=== PATIENT | male | born 1945 | race Caucasian/White ===

== ENCOUNTER 2017-02-15 13:34 | Emergency (ER) | payer OTHER ==
[2017-02-15 12:37] LABS: BE (BASE EXCESS) 2.2 MEQ/L (0 +/- 2.5); CARBOXYHEMOGLOBIN 1.2 % (0-3); HCO3 (ACTUAL BICARBONATE) 27.3 MEQ/L (23-27); INSTRUMENT SERIAL # 8087; METHEMOGLOBIN 0.2 % (0-3); O2 CONTENT 19.5 VOL% (18-24); PCO2 (CO2 TENSION) 44 MMHG (35-45); PO2 (O2 TENSION) 162 MMHG (79-93); SAMPLE Arterial; pH 7.41 (7.37-7.43)
[2017-02-15 12:38] LABS: ALLENS TEST Pos; DEVICE NC; OPERATOR ID 35188
[2017-02-15 13:02] LABS: BASOPHILS 0.1 %; BASOPHILS ABSOLUTE 0.01 10/3/uL (0.0-0.16); EOSINOPHILS 0 %; HEMATOCRIT 40.9 % (40.0-51.0); HEMOGLOBIN 14.3 g/dL (13.6-17.8); IMMATURE GRANULOCYTES 1.4 %; IMMATURE GRANULOCYTES ABSOLUTE 0.11 10/3/uL (0.0-0.11); LYMPHOCYTES 3.8 %; LYMPHOCYTES ABSOLUTE 0.29 10/3/uL (0.67-4.30); MANUAL DIFF NO %; MEAN CORPUSCULAR HEMOGLOB 29.9 pg (26.0-34.0); MEAN CORPUSCULAR VOLUME 85.4 fL (80-100); MONOCYTES 0.1 %; MONOCYTES ABSOLUTE 0.01 10/3/uL (0.21-1.20); NEUTROPHILS 94.6 %; NEUTROPHILS ABSOLUTE 7.31 10/3/uL (2.02-8.40); PLATELET COUNT 171 10/3/uL (150-400); RBC DISTRIBUTION WIDTH 15.1 % (12.0-16.0); RED CELL COUNT 4.79 10/6/uL (4.7-6.1); WHITE BLOOD CELLS 7.7 10/3/uL (4.5-10.5)
[2017-02-15 13:16] LABS: A/G RATIO 1.2 (0.7-1.9); CALCIUM, SERUM 8.8 MG/DL (8.5-10.4); CHLORIDE, SERUM 98 MMOL/L (96-112); CREATININE 0.71 MG/DL (0.70-1.30); GFR AFRICAN AMERICAN 111 ML/MIN (>=60); GFR NON AFRICAN AMERICAN 96 ML/MIN (>=60); GLOBULIN 3.3 G/DL (2.5-4.1); POTASSIUM, SERUM 3.4 MMOL/L (3.5-5.3); SGOT(AST) 12 U/L (5-40); SGPT(ALT) 29 U/L (5-65); SODIUM, SERUM 139 MMOL/L (135-148); TOTAL BILIRUBIN 0.7 MG/DL (0-1.2); TOTAL PROTEIN 7.3 G/DL (6.0-8.5)
[2017-02-15 13:19] LABS: ALKALINE PHOSPHATASE 83 U/L (45-117); BUN (BLOOD UREA NITROGEN) 18 MG/DL (6-23); CO2 (CARBON DIOXIDE) 32 MMOL/L (24-34); GLUCOSE, SERUM 168 MG/DL (60-99)
[~2017-02-15 13:34] MED LIST: ADVAIR INH; ADVAIR PO; ALLOPURINOL; ATROVENTUD INH; BLOOD PRESSURE MED PO; DUONEB INH; EXCEDRIN EXTRA1 EACH PO; GLUCPH PO; HUMI PO; LEVAQUIN750 MG PO; MEDROLPAK4; NICODERM C21 MG/241 TOP; NORV25 PO; P20; PREDNISONE PO; PRILO PO; PRIN20 PO; PROVENTSOL INH; SPIRIVA INH; SYMBICORT 160/41 INH INH; VENTOLIN HFA PO; ZITH250 PO
[2017-03-27] MEDS ORDERED: *UNABLE1 (05:58)
== END 2017-02-15 21:17 | disposition home or self-care (01) ==
LOC: ER 13:34
PROVIDERS: Emergency Medicine
DX: J44.1 Chronic obstructive pulmonary disease with (acute) exacerbation (principal); I10 Essential (primary) hypertension; F17.200 Nicotine dependence, unspecified, uncomplicated; Z79.899 Other long term (current) drug therapy; Z79.52 Long term (current) use of systemic steroids
CPT/HCPCS: 36600; 71010; 80053; 82805; 85025; 87040; 87070; 87205; 93005; 94640; 99285

== ENCOUNTER 2017-02-19 03:57 | Inpatient (IN) | payer OTHER ==
--- NOTE | ~2017-02-19 | DS ---
Discharge Summary [facility] [address] [place]. [address] NAME: BRENDAN CHINO JR : 49 STATUS : DIS IN PAT#: [id number] AGE: 71 ADM/REG DATE : 02/19/17 MR#: [id number] REPORT SERV DATE: 02/23/17 DICTATED BY: JUDITH HERNANDEZ DATE: 02/22/17 REPORT STATUS : Draft TRANSCRIBED BY: MODL DATE: 02/22/17 ADMISSION DATE: 02/19/2017 DISCHARGE DATE: 02/22/2017 PRINCIPAL DIAGNOSIS: Chronic obstructive pulmonary disease exacerbation with acute on chronic hypoxemic and hypercapnic respiratory failure. HISTORY OF PRESENT ILLNESS: Please see dictation on 02/19/2017. HOSPITAL COURSE: Admitted with exacerbation of COPD. He received aerosols, steroids, antibiotics, and was able to be weaned off these as his breathing had returned to baseline. He was not found to be wheezing by 02/22/2017 and was discharged. Following up with Dr. Bryan Guerra in 1 to 2 weeks. He was given prescriptions for Advair and Spiriva in addition to his albuterol and Atrovent which he would take p.r.n., a tapering course of steroids, no further antibiotics. Other medications were unchanged. Greater 30 minutes were spent in the care of this patient on discharge planning on discharge day. MAYRA/AINSLEY Judith Hernandez M.D. / [id number] CC: Bryan Guerra M.D.
--- NOTE | ~2017-02-19 | HP ---
History And Physical [place] [place]. [address] NAME: BRENDAN CHINO JR : 49 STATUS : ADM Barb PAT#: [id number] AGE: 71 ADM/REG DATE : 02/19/17 MR#: [id number] REPORT SERV DATE: 02/19/17 DICTATED BY: ANSON BECERRA DATE: 02/19/17 REPORT STATUS : Draft TRANSCRIBED BY: MODL DATE: 02/19/17 DATE OF ADMISSION: 02/19/2017 CHIEF COMPLAINT: Shortness of breath. HISTORY OF PRESENT ILLNESS: This is a 71-year-old male with a history of COPD, chronic hypoxic respiratory failure, on supplemental oxygen therapy at home, who presents to the emergency room at [facility] with EMS for the above-mentioned complaint. History is obtained from the patient and reviewing data available on the [employer] system as well. According to Mr. Chino, he was in his usual state of health and last night, he had supper and tried to retire in bed when he suddenly found himself unable to breathe. He apparently got up, tried his home nebulizer treatments and other inhalers, but nothing worked. Neighbor, who is close to his house, also helped him out and advised him that he might call 911 and get to the hospital. In the emergency room, despite several respiratory treatments and nebulizer treatments, Mr. Chino continued to have increased work of breathing, and Hospitalist Service is asked to admit him for further evaluation and treatment. At the time of my evaluation, he denied any chest pain or pressure, denied any palpitations or orthopnea. He had a cough, which was essentially nonproductive, not associated with any fevers, chills, or weight loss. He has not had any recent falls or loss of consciousness, although he did have some dizziness. No history of fevers, chills, nausea, vomiting, diarrhea, hematemesis, hematochezia. No dysuria or hematuria. No other history of recent travel or exposures other than those mentioned above. PAST MEDICAL HISTORY: Significant for history of COPD, chronic hypoxic respiratory failure on 2 to 3 L of oxygen via nasal cannula continuously. He also has essential hypertension, gastroesophageal reflux disease. He has had an open reduction and internal fixation of his left femur. SOCIAL HISTORY: He has a very significant smoking history with more than 100-pack years and he continues to do so. Denies alcohol use or recreational drug use. He used to work in linen delivery and pickup. FAMILY HISTORY: Noncontributory. MEDICATIONS: At home were reviewed by me in the chart today and reordered by me. REVIEW OF SYSTEMS: As in history of present illness. All other systems were reviewed in detail and are quite unremarkable. PHYSICAL EXAMINATION: History And Physical [address] [place]. [address] NAME: BRENDAN CHINO JR : 49 STATUS : ADM Barb PAT#: [id number] AGE: 71 ADM/REG DATE : 02/19/17 MR#: [id number] REPORT SERV DATE: 02/19/17 DICTATED BY: ANSON BECERRA DATE: 02/19/17 REPORT STATUS : Draft TRANSCRIBED BY: AINSLEY DATE: 02/19/17 GENERAL: This is a pleasant 71-year-old, not in any acute distress. HEENT: His head is atraumatic, normocephalic. He is alert, awake, oriented to time, place, and person. Pupils are equal, reacting to light and accommodating. External ocular muscles are intact. Membranes are moist and pink. Sclerae are nonicteric. NECK: Supple with no jugular venous distention, lymphadenopathy, or thyromegaly. LUNGS: Auscultation of his lungs revealed moderate air entry bilaterally, but with expiratory wheezes diffusely in both lungs. Trachea appeared to be in midline. Cardiac: Auscultation of his heart revealed normal rate and rhythm with no murmurs, rubs, or gallops. ABDOMEN: Soft, nontender. Bowel sounds are present. There is no organomegaly. EXTREMITIES: Showed no cyanosis, clubbing, or edema. NEUROLOGIC: Grossly intact. No focal sensory or motor deficits. He was able to move all four extremities. Higher functions appeared intact. VITAL SIGNS: Today showed a temperature of 97.9, pulse 89, respirations 16 a minute, blood pressure was 141/87, oxygen saturations were 98%, breathing 3 L of oxygen via nasal cannula. LABORATORY DATA: Reviewed on the [employer] system showed a pH of 7.39 on arterial blood gas, pCO2 was 53, PO2 was 81, and bicarb was 31.2. This was on 2 L via nasal cannula. Sodium was 138, potassium 3.3, chloride 99, and CO2 was 32. BUN was 16 with a creatinine of 0.65 today. Blood glucose was 106. His troponin today was 0.03. BNP was 69. CBC showed a white blood cell count of 15,500, hemoglobin was 13.3 with a hematocrit of 39.1, platelet count was 178,000. His prothrombin time was 13.5 with an INR of 1.0. Urinalysis was not performed today. Films of the chest x-ray were reviewed by me on the PACS today and interpreted by me. Per my interpretation, there is normal bony architecture with no acute lobar consolidations or pleural effusions seen. A 12-lead EKG done in the emergency room was reviewed and interpreted by me. There is normal sinus rhythm with a rate of 92 with right bundle branch block. IMPRESSION: 1. Shortness of breath. 2. Chronic obstructive pulmonary disease with acute exacerbation. 3. Respiratory acidosis. 4. Leukocytosis. 5. Essential hypertension. 6. Gastroesophageal reflux disease. 7. Chronic hypoxic respiratory failure, on 2 L of oxygen continuously. PLAN: We will admit Mr. Chino to the Hospitalist Service with telemetry for a 24-hour observation. We will maximize his bronchodilator treatments, continue supplemental oxygen therapy, start him on inhaled and intravenous corticosteroids. We will follow his ABGs. After cultures are drawn, we will start him on empiric IV antibiotics. We will start him on azithromycin and ceftriaxone, follow Gram stain cultures and discontinue if appropriate. We will continue all other medications and treatments that he is on. We will also get a chemistry CBC in the morning along with electrolytes and replete as needed. He will be placed on low-molecular weight heparin for DVT prophylaxis while here as well. I have discussed the above plans with Mr. Chino, his questions were answered and he is quite agreeable to the above recommendations. He also said he is feeling much better than when he History And Physical [address] [place]. [address] NAME: BRENDAN CHINO : 49 STATUS : ADM Barb PAT#: [id number] AGE: 71 ADM/REG DATE : 02/19/17 MR#: [id number] REPORT SERV DATE: 02/19/17 DICTATED BY: ANSON BECERRA DATE: 02/19/17 REPORT STATUS : Draft TRANSCRIBED BY: AINSLEY DATE: 02/19/17 first came in. Hospitalist Service will be following him during his stay here. /AINSLEY Anson Becerra M.D. / [id number] CC: Massimo Pagan MD
[2017-02-19 03:23] LABS: BASOPHILS 0.1 %; BASOPHILS ABSOLUTE 0.01 10/3/uL (0.0-0.16); EOSINOPHILS 0.9 %; EOSINOPHILS ABSOLUTE 0.14 10/3/uL (0.0-0.53); HEMATOCRIT 39.1 % (40.0-51.0); HEMOGLOBIN 13.3 g/dL (13.6-17.8); IMMATURE GRANULOCYTES 1.8 %; LYMPHOCYTES 8.2 %; LYMPHOCYTES ABSOLUTE 1.27 10/3/uL (0.67-4.30); MEAN CORPUSCULAR HEMOGLOB 29.6 pg (26.0-34.0); MEAN CORPUSCULAR VOLUME 87.1 fL (80-100); MEAN PLATELET VOLUME 8.7 fL (9.2-13.0); MONOCYTES 5.8 %; NEUTROPHILS 83.2 %; NEUTROPHILS ABSOLUTE 12.93 10/3/uL (2.02-8.40); PLATELET COUNT 178 10/3/uL (150-400); RBC DISTRIBUTION WIDTH 15.2 % (12.0-16.0); RED CELL COUNT 4.49 10/6/uL (4.7-6.1)
[2017-02-19 03:25] LABS: ER CBC TAT 0 Hrs 07 Mins; IMMATURE GRANULOCYTES ABSOLUTE 0.28 10/3/uL (0.0-0.11); MANUAL DIFF NO %; WHITE BLOOD CELLS 15.5 10/3/uL (4.5-10.5)
[2017-02-19 03:29] LABS: PROTIME (NOT ORD) 13.5 SEC (12.0-14.5)
[2017-02-19 03:34] LABS: PARTIAL THROMBO TIME 23.3 SEC (22.5-37.2)
[2017-02-19 03:43] LABS: BUN (BLOOD UREA NITROGEN) 16 MG/DL (6-23); CALCIUM, SERUM 8.5 MG/DL (8.5-10.4); CHEST PAIN PROFILE TAT 0 Hrs 25 Mins; CHLORIDE, SERUM 99 MMOL/L (96-112); CO2 (CARBON DIOXIDE) 32 MMOL/L (24-34); CREATININE 0.65 MG/DL (0.70-1.30); GFR AFRICAN AMERICAN 115 ML/MIN (>=60); GFR NON AFRICAN AMERICAN 99 ML/MIN (>=60); POTASSIUM, SERUM 3.3 MMOL/L (3.5-5.3); SODIUM, SERUM 138 MMOL/L (135-148); TROPONIN I 0.03 NG/ML (<0.05)
[2017-02-19 03:51] LABS: GLUCOSE, SERUM 106 MG/DL (60-99)
[2017-02-19 04:10] LABS: BAND NEUTROPHILS 2 %; ER DIFF TAT 0 Hrs 52 Mins; LYMPHOCYTES 10 %; LYMPHOCYTES ABSOLUTE (CALC) 1.55 10/3/uL (0.67-4.30); MONOCYTES 8 %; MONOCYTES ABSOLUTE (CALC) 1.24 10/3/uL (0.21-1.20); NEUTROPHILS ABSOLUTE (CALC) 12.71 10/3/uL (2.02-8.40); PLATELET ESTIMATE ADQ (ADEQUATE); RBC MORPHOLOGY NORM (NORMAL); SEGMENTED NEUTROPHIL (0) 80 %; TOTAL NUCLEATED CELLS 100
[2017-02-19 04:31] LABS: ALLENS TEST Pos; DEVICE NC; HCO3 (ACTUAL BICARBONATE) 31.2 MEQ/L (23-27); HEMOBLOGIN CONTENT 13.9 G/DL (14-18); INSTRUMENT SERIAL # 8087; METHEMOGLOBIN 0.2 % (0-3); O2 CONTENT 18.4 VOL% (18-24); OPERATOR ID 334499; PCO2 (CO2 TENSION) 53 MMHG (35-45); PO2 (O2 TENSION) 81 MMHG (79-93); SAMPLE Arterial; pH 7.39 (7.37-7.43)
[2017-02-19 07:25] LABS: BASOPHILS 0.1 %; BASOPHILS ABSOLUTE 0.01 10/3/uL (0.0-0.16); EOSINOPHILS 0.1 %; EOSINOPHILS ABSOLUTE 0.01 10/3/uL (0.0-0.53); HEMATOCRIT 37.8 % (40.0-51.0); IMMATURE GRANULOCYTES 0.9 %; IMMATURE GRANULOCYTES ABSOLUTE 0.15 10/3/uL (0.0-0.11); LYMPHOCYTES 1.9 %; LYMPHOCYTES ABSOLUTE 0.31 10/3/uL (0.67-4.30); MEAN CORPUS HGB CONC 34.4 g/dL (32.0-36.0); MEAN CORPUSCULAR HEMOGLOB 29.6 pg (26.0-34.0); MEAN CORPUSCULAR VOLUME 86.1 fL (80-100); MEAN PLATELET VOLUME 8.9 fL (9.2-13.0); MONOCYTES 2.2 %; MONOCYTES ABSOLUTE 0.36 10/3/uL (0.21-1.20); NEUTROPHILS 94.8 %; NEUTROPHILS ABSOLUTE 15.87 10/3/uL (2.02-8.40); PLATELET COUNT 171 10/3/uL (150-400); RBC DISTRIBUTION WIDTH 15.3 % (12.0-16.0); RED CELL COUNT 4.39 10/6/uL (4.7-6.1); WHITE BLOOD CELLS 16.7 10/3/uL (4.5-10.5)
[2017-02-19 07:29] LABS: MANUAL DIFF NO %
[2017-02-19 07:38] LABS: BUN (BLOOD UREA NITROGEN) 15 MG/DL (6-23); CALCIUM, SERUM 8.3 MG/DL (8.5-10.4); CHLORIDE, SERUM 99 MMOL/L (96-112); CO2 (CARBON DIOXIDE) 30 MMOL/L (24-34); CREATININE 0.57 MG/DL (0.70-1.30); GFR AFRICAN AMERICAN 121 ML/MIN (>=60); GFR NON AFRICAN AMERICAN 105 ML/MIN (>=60); PHOSPHORUS, SERUM 2.9 MG/DL (2.5-4.5); POTASSIUM, SERUM 3.9 MMOL/L (3.5-5.3); SODIUM, SERUM 138 MMOL/L (135-148)
[2017-02-19 07:40] LABS: GLUCOSE, SERUM 134 MG/DL (60-99)
[2017-02-19] MEDS ORDERED: LEVAQUIN750 MG PO (15:07)
[2017-02-19] MEDS ORDERED: ALBUTEROL0.083 % INH (15:09)
[2017-02-19] MEDS ORDERED: NORV25 PO (15:10)
[2017-02-19] MEDS ORDERED: ATROVENTUD INH (15:11)
[2017-02-19] MEDS ORDERED: PRIN20 PO (15:12)
[2017-02-19] MEDS ORDERED: PRILO PO (15:13)
[2017-02-19] MEDS ORDERED: VENTOLIN HFA INH (15:16)
[2017-02-19] MEDS ORDERED: EXCEDRIN EXTRA1 EACH PO (15:19)
[2017-02-22] MEDS ORDERED: NORV25 PO (15:17)
[2017-02-22] MEDS ORDERED: ADVAIR100 INH (15:19)
[2017-02-22] MEDS ORDERED: SPIRIVA INH (15:20)
[2017-02-22] MEDS ORDERED: P10 ×3 (15:22→15:24)
[2017-03-27] MEDS ORDERED: *UNABLE1 (05:58)
== END 2017-02-22 17:50 | disposition home or self-care (01) | DRG 189 ==
LOC: ER 03:57 → 7NO 04:58
PROVIDERS: Emergency Medicine; Internal Medicine Pulmonary Disease
DX: J96.21 Acute and chronic respiratory failure with hypoxia (principal); E87.2 Acidosis; J44.1 Chronic obstructive pulmonary disease with (acute) exacerbation; J96.22 Acute and chronic respiratory failure with hypercapnia; F17.210 Nicotine dependence, cigarettes, uncomplicated; Z99.81 Dependence on supplemental oxygen; K21.9 Gastro-esophageal reflux disease without esophagitis; D72.829 Elevated white blood cell count, unspecified; I10 Essential (primary) hypertension; H26.9 Unspecified cataract
CPT/HCPCS: 36600; 71020; 80048; 82805; 83605; 83735; 83880; 84100; 84145; 84484; 85025; 85610; 85730; 87040; 87070; 87205; 87449; 93005; 94640; 96374; 99285; A9270-GY; J0456; J2930

== ENCOUNTER 2017-03-06 19:23 | Inpatient (IN) | payer OTHER ==
--- NOTE | ~2017-03-06 | DS ---
Discharge Summary [facility] [address] [place]. [address] NAME: BRENDAN CHINO JR : 49 STATUS : DIS IN PAT#: [id number] AGE: 71 ADM/REG DATE : 03/06/17 MR#: [id number] REPORT SERV DATE: 03/13/17 DICTATED BY: BRANDIE BEAUCHAMP DATE: 03/12/17 REPORT STATUS : Draft TRANSCRIBED BY: AINSLEY DATE: 03/12/17 ADMISSION DATE: 03/06/2017 DISCHARGE DATE: 03/11/2017 DISCHARGE DIAGNOSES: 1. Acute on chronic, chronic obstructive pulmonary disease exacerbation. 2. Chronic hypoxic respiratory failure. 3. Lower extremity edema. 4. Hypertension. 5. Positive D-dimer. FOLLOWUP: The patient is to have pulmonary rehab ordered by Pulmonary Service during this hospital course. The patient is to continue with home health PT and nursing. The patient is to follow up with the primary care physician in one to two weeks and follow up with Dr. Madrigal, sandblast carver, in three weeks. The patient has been educated on no tobacco usage. DISCHARGE MEDICATIONS: Levaquin 750 mg p.o. daily for one day, lisinopril 20 mg p.o. b.i.d., Prilosec 20 mg p.o. daily, hydralazine 25 mg p.o. t.i.d., albuterol neb q.4 hours, Atrovent one neb three times a day p.r.n., Norvasc 2.5 mg p.o. q.a.m., Spiriva two puffs inhaled daily, Symbicort 160/4.5 two puffs inhaled b.i.d., prednisone taper. CONSULTANTS: 1. Pulmonology with Dr. Armendariz. 2. Hospitalist, Dr. Castillo Owens, Dr. Vega, and Dr. Beauchamp. HOSPITAL COURSE: Please see H and P dictated by Dr. Owens. This is a 71-year-old male with a past medical history of COPD, on home O2 at 2-3 L, who presented with a lower extremity edema, shortness of breath, and dyspnea on exertion. During this hospital course, the patient was treated for COPD exacerbation and had a slow improvement due to presumed possible tyfxryfk-ja-xqpsiy COPD. The patient also was treated with diuretics for his lower extremity edema with improvement. He did have a positive D-dimer and therefore, had a CTA of the chest that was negative for PE centrally, but was noted with moderate emphysematous changes. Also, he had a venous doppler ultrasound that was negative of the bilateral lower extremity for DVT. The patient had a slow clinical course. Pulmonary was consulted to assist with the patient's care and they recommended pulmonary rehab. The patient states he is not sure if he will follow up in Pulmonary Rehab because he did not want to travel to an outpatient rehab facility. Therefore, it was recommended for inpatient rehab, and the patient also refused inpatient rehab. Initially, the patient was placed on BiPAP during this hospital course; however, the patient refused his BiPAP. However, he did have improvement respiratory-marie, but slowly with the treatment. At the time of discharge, the patient was back to his baseline of his physical and lung capacity. However, we still recommend a close followup with his sandblast carver and also with Pulmonary Rehab, which has been educated to the patient about importance. Also, the patient was educated on tobacco abuse cessation, and the patient was discharged to home clinically stable and approved for discharge as well by Pulmonary. Discharge Summary [address] [place]. [address] NAME: BRENDAN CHINO : 49 STATUS : DIS IN [facility]#: [id number] AGE: 71 ADM/REG DATE : 03/06/17 MR#: [id number] REPORT SERV DATE: 03/13/17 DICTATED BY: BRANDIE BEAUCHAMP DATE: 03/12/17 REPORT STATUS : Draft TRANSCRIBED BY: AINSLEY DATE: 03/12/17 BANNER/AINSLEY Brandie Beauchamp M.D. / [id number] CC: Mauricio Antunez M.D. Nathan Mull IV, M.D.
--- NOTE | ~2017-03-06 | PUL ---
[address] [place]. [address] NAME: BRENDAN CHINO JR : 49 STATUS : DIS IN PAT#: [id number] AGE: 71 ADM/REG DATE : 03/06/17 MR#: [id number] REPORT SERV DATE: 03/13/17 DICTATED BY: PATRIC UPTON DATE: 03/13/17 REPORT STATUS : Draft TRANSCRIBED BY: MODL DATE: 03/13/17 PULMONARY FUNCTION TEST PROCEDURE PERFORMED: Overnight oximetry on supplemental oxygen. The patient had only 1 minute with an oxygen saturation of less than 88% of predicted and the longest continuous desaturation was less than a minute long. IMPRESSION: Adequate correction of hypoxemia with supplemental oxygen. SUSAN/AINSLEY Patric Upton M.D. / [id number] CC: Mauricio Antunez M.D.
--- NOTE | ~2017-03-06 | CN ---
Consultation Report [facility] [address] [place]. [address] NAME: RUDDY CHINO JR : 49 STATUS : ADM IN PAT#: [id number] AGE: 71 ADM/REG DATE : 03/06/17 MR#: [id number] REPORT SERV DATE: 03/08/17 DICTATED BY: JULIAN WADDELL DATE: 03/08/17 REPORT STATUS : Draft TRANSCRIBED BY: MODL DATE: 03/08/17 CONSULT NOTE DATE OF CONSULTATION: 03/08/2017 CHIEF COMPLAINT: Shortness of breath, cough, and wheeze. HISTORY OF PRESENT ILLNESS: Mr. Ruddy Chino is a 71-year-old white male with a past medical history significant for oxygen-dependent COPD, hypertension, and recent tobacco abuse, who presents to [facility]'s Emergency Room with complaints of worsening shortness of breath, cough, and wheezing of one to two weeks' duration. It should be noted that Mr. Chino has not been hospitalized recently and has done fairly well as an outpatient given the severity of his underlying lung disease. Mr. Chino is not currently followed by a vp site. He has been seen by our service in the past, but has not established in our office secondary to financial concerns. He is oxygen dependent on two or three liters of supplemental oxygen. He is unsure of his exact pulmonary regimen. Chart review suggests he takes albuterol, Symbicort, Atrovent, as well as Spiriva. Despite not knowing all of his medications, he does claim compliance with these medications. The patient states that he quit smoking approximately two weeks ago. He has smoked upwards of a pack a day for over 50 years. He largely denies symptomatology related to obstructive sleep apnea. He describes his exercise tolerance as being fairly limited, being only able to ambulate around his home before experiencing some degree of shortness of breath. The patient states that he began to have worsening shortness of breath as well as cough and wheezing approximately one to two weeks ago. Over the last two to three days, this got progressively worse and culminated in his presentation to [facility]'s Emergency Room. Upon arrival, he was found to have a systolic blood pressure of 158, his oxygen was 99% on 4 L. Initial blood work revealed a white blood cell count of 7900. BNP was 111. He did undergo a chest x-ray, which did not reveal any acute process. The patient did receive Solu-Medrol as well as breathing treatments. Since that time, the patient has felt somewhat better. That being said, he is still having persistent dyspnea, cough, and wheeze. For the aforementioned reasons, he has been referred to the pulmonary service for further assessment. Currently, Mr. Chino is on supplemental oxygen at 3 L. He is wheezing. He is coughing periodically without purulent sputum. He does have dyspnea on exertion. He does not have frequent exacerbations of his COPD. The patient currently denies murmurs, angina, or palpitations. In regard to constitutional symptoms, the patient currently denies fever, chills, nausea, vomiting, chest pain, abdominal pain, or edema. Consultation Report [address] [place]. [address] NAME: RUDDY CHINO JR : 49 STATUS : ADM IN [facility]#: [id number] AGE: 71 ADM/REG DATE : 03/06/17 MR#: [id number] REPORT SERV DATE: 03/08/17 DICTATED BY: JULIAN WADDELL DATE: 03/08/17 REPORT STATUS : Draft TRANSCRIBED BY: AINSLEY DATE: 03/08/17 PAST MEDICAL HISTORY: 1. Oxygen-dependent COPD. 2. Hypertension. 3. Tobacco dependency. PAST SURGICAL HISTORY: Left femur ORIF. FAMILY HISTORY: The patient denies family history of lung disease. SOCIAL HISTORY: The patient currently lives alone. He is planning on moving in with his neighbors after this hospitalization for improved outpatient support. TOBACCO/ALCOHOL: As previously mentioned, the patient states he quit smoking approximately two weeks ago. Prior to this time, he smoked a pack a day for a period of 50 years. He denies any recent alcohol or illicit drug use. MEDICATIONS: 1. Albuterol. 2. Amlodipine 2.5 mg. 3. Symbicort. 4. Ipratropium. 5. Lisinopril 20 mg. 6. Omeprazole 20 mg. 7. Spiriva. ALLERGIES: THE PATIENT HAS NO KNOWN DRUG ALLERGIES. REVIEW OF SYSTEMS: A complete review of systems was performed with pertinent positives and negatives contained within the body of the HPI. PHYSICAL EXAMINATION: VITAL SIGNS: Blood pressure is 152/80, heart rate 69, T-max is 98.4, respiratory rate is 17, and SpO2 is 99% on 3 L. GENERAL: The patient is a pleasant, well-nourished/well-developed male who is not currently exhibiting any signs of acute distress. Skin: Skin with appropriate texture and turgor. No rashes, lesions, or ulcers. Nails are clear without cyanosis or clubbing. HEENT: Head: Skull is normocephalic/atraumatic. Facies symmetric. No masses or lesions. Eyes: Sclera anicteric, conjunctiva pink without exudates. Extra ocular movements intact. Pupils are equal, round, reactive to light. Ears: Auricles and tragus without pain to palpation. Hearing is grossly intact. Nose: Bilateral nasal patency. Sinuses without tenderness upon palpation. Throat: Dentition noted. Lips, oral mucosa, tongue, palate, and pharynx pink and moist without lesions. Uvula rises equally on phonation. Tongue Consultation Report [place] [id number] [facility] [place]. [address] NAME: RUDDY CHINO : 49 STATUS : ADM IN [facility]#: [id number] AGE: 71 ADM/REG DATE : 03/06/17 MR#: [id number] REPORT SERV DATE: 03/08/17 DICTATED BY: JULIAN WADDELL DATE: 03/08/17 REPORT STATUS : Draft TRANSCRIBED BY: AINSLEY DATE: 03/08/17 midline without deviation. NECK: Neck supple. Trachea midline. No cervical lymphadenopathy appreciated. THORAX/LUNGS: Thorax is symmetric with equal chest rise. Breath sounds audible through entire field. Rhonchi and wheeze appreciated. CARDIOVASCULAR: Regular rate and rhythm. No murmurs, rubs, or gallops. Anterior chest without thrills, heaves, or lifts. ABDOMEN: Soft. Non-distended, non-tender. Active bowel sounds in all four quadrants. No hepatosplenomegaly noted. PERIPHERAL VASCULAR: No edema. No varicosities, stasis changes, open sores, ulcerations, or phlebitis. 2+ pulses in radial and dorsalis pedis. MUSCULOSKELETAL: Full AROM and PROM in all joints. No evidence of erythema, deformity, or crepitus. NEUROLOGIC: CN II - XII grossly intact. Good muscle bulk and tone bilaterally. Strength 5/5 throughout. PSYCHIATRIC: Patient demonstrates good judgment and insight. Pt is A&O x 3. ACCESSORY DATA: Reveals a white blood cell count is 7900. Procalcitonin is 0.15. Arterial blood gas on 3 L reveals a pH of 7.39, PaCO2 of 56, PaO2 of 76, and a bicarb of 33.6. Echocardiogram reveals normal left ventricular size and systolic function. Estimated ejection fraction of 50% to 55%. There is a CTA of the chest pending. IMPRESSION: 1. Exacerbation of chronic obstructive pulmonary disease, acute on chronic hypoxemic, hypercapnic respiratory failure. Near baseline. 2. Hypertension. 3. Gastroesophageal reflux disease. PLAN: We will provide the patient with steroids and a full armamentarium of nebulized medications. We will offer the patient outpatient followup. He may be a candidate for pulmonary rehab. We will follow imaging studies with further recommendations. The aforementioned impression and plan has been discussed with Dr. Armendariz, who will follow further recommendations. We thank you for this consult and look forward to participating in the care of Mr. Ruddy Chino. INOCENCIO/MODL Julian Waddell PA-C / [id number] Consultation Report [address] [address] NAME: RUDDY CHINO : 49 STATUS : ADM IN [facility]#: [id number] AGE: 71 ADM/REG DATE : 03/06/17 MR#: [id number] REPORT SERV DATE: 03/08/17 DICTATED BY: JULIAN WADDELL DATE: 03/08/17 REPORT STATUS : Draft TRANSCRIBED BY: MODL DATE: 03/08/17 CC: Mauricio Antunez M.D.
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
[~2017-03-06 19:23] MED LIST changes: +ADVAIR100 INH; +ALBUTEROL0.083 % INH; +P10; +VENTOLIN HFA INH
[2017-03-06 19:54] LABS: BASOPHILS 0.1 %; BASOPHILS ABSOLUTE 0.01 10/3/uL (0.0-0.16); EOSINOPHILS 1.8 %; EOSINOPHILS ABSOLUTE 0.14 10/3/uL (0.0-0.53); ER CBC TAT 0 Hrs 08 Mins; HEMATOCRIT 35.4 % (40.0-51.0); HEMOGLOBIN 11.7 g/dL (13.6-17.8); IMMATURE GRANULOCYTES 1.5 %; IMMATURE GRANULOCYTES ABSOLUTE 0.12 10/3/uL (0.0-0.11); LYMPHOCYTES 18.7 %; LYMPHOCYTES ABSOLUTE 1.47 10/3/uL (0.67-4.30); MEAN CORPUS HGB CONC 33.1 g/dL (32.0-36.0); MEAN CORPUSCULAR HEMOGLOB 30.4 pg (26.0-34.0); MEAN CORPUSCULAR VOLUME 91.9 fL (80-100); MEAN PLATELET VOLUME 8.8 fL (9.2-13.0); MONOCYTES ABSOLUTE 0.47 10/3/uL (0.21-1.20); NEUTROPHILS 71.9 %; NEUTROPHILS ABSOLUTE 5.66 10/3/uL (2.02-8.40); PLATELET COUNT 168 10/3/uL (150-400); RBC DISTRIBUTION WIDTH 16.3 % (12.0-16.0); RED CELL COUNT 3.85 10/6/uL (4.7-6.1); WHITE BLOOD CELLS 7.9 10/3/uL (4.5-10.5)
[2017-03-06 19:55] LABS: MANUAL DIFF NO %
[2017-03-06 20:03] LABS: INTERNATIONAL NORMAL RATI 0.9 UNITS (-); PARTIAL THROMBO TIME 23.8 SEC (22.5-37.2); PROTIME (NOT ORD) 12.3 SEC (12.0-14.5)
[2017-03-06 20:10] LABS: ALLENS TEST Neg; BE (BASE EXCESS) 7.2 MEQ/L (0 +/- 2.5); CARBOXYHEMOGLOBIN 3.1 % (0-3); DEVICE NC; HCO3 (ACTUAL BICARBONATE) 33.6 MEQ/L (23-27); INSTRUMENT SERIAL # 8087; METHEMOGLOBIN 0.3 % (0-3); O2 CONTENT 15.6 VOL% (18-24); PCO2 (CO2 TENSION) 56 MMHG (35-45); PO2 (O2 TENSION) 76 MMHG (79-93); SAMPLE Arterial; pH 7.39 (7.37-7.43)
[2017-03-06 20:15] LABS: BUN (BLOOD UREA NITROGEN) 11 MG/DL (6-23); CALCIUM, SERUM 8.1 MG/DL (8.5-10.4); CHEST PAIN PROFILE TAT 0 Hrs 29 Mins; CHLORIDE, SERUM 99 MMOL/L (96-112); CO2 (CARBON DIOXIDE) 38 MMOL/L (24-34); CREATININE 0.56 MG/DL (0.70-1.30); GFR AFRICAN AMERICAN 122 ML/MIN (>=60); GFR NON AFRICAN AMERICAN 106 ML/MIN (>=60); GLUCOSE, SERUM 103 MG/DL (60-99); POTASSIUM, SERUM 3.2 MMOL/L (3.5-5.3); SODIUM, SERUM 144 MMOL/L (135-148); TROPONIN I <0.02 NG/ML (<0.05)
[2017-03-06] MEDS ORDERED: SPIRIVA RESPIMAT INH (22:00)
[2017-03-06] MEDS ORDERED: SYMBICORT 160/41 INH INH (22:01)
[2017-03-06] MEDS ORDERED: PREDNISONE (22:02)
[2017-03-06] MEDS ORDERED: EXCEDRIN EXTRA1 EACH PO (22:04)
[2017-03-06 22:52] LABS: PROCALCITONIN <0.05 ng/mL (<0.5)
[2017-03-07 06:23] LABS: FREE T4 1.06 NG/DL (0.76-1.46); TROPONIN I <0.02 NG/ML (<0.05); ULTRASENSITIVE TSH 0.178 MCIU/ML (0.358-3.740)
[2017-03-07 07:26] LABS: PROCALCITONIN 0.15 ng/mL (<0.5)
[2017-03-07 09:41] LABS: BUN (BLOOD UREA NITROGEN) 15 MG/DL (6-23); CALCIUM, SERUM 8.4 MG/DL (8.5-10.4); CHLORIDE, SERUM 96 MMOL/L (96-112); CO2 (CARBON DIOXIDE) 33 MMOL/L (24-34); CREATININE 0.63 MG/DL (0.70-1.30); GFR AFRICAN AMERICAN 117 ML/MIN (>=60); GFR NON AFRICAN AMERICAN 101 ML/MIN (>=60); GLUCOSE, SERUM 182 MG/DL (60-99); POTASSIUM, SERUM 3.7 MMOL/L (3.5-5.3); SODIUM, SERUM 141 MMOL/L (135-148)
[2017-03-08 06:27] LABS: BUN (BLOOD UREA NITROGEN) 18 MG/DL (6-23); CALCIUM, SERUM 8.6 MG/DL (8.5-10.4); CHLORIDE, SERUM 98 MMOL/L (96-112); CO2 (CARBON DIOXIDE) 35 MMOL/L (24-34); CREATININE 0.53 MG/DL (0.70-1.30); GFR AFRICAN AMERICAN 125 ML/MIN (>=60); GFR NON AFRICAN AMERICAN 108 ML/MIN (>=60); GLUCOSE, SERUM 130 MG/DL (60-99); POTASSIUM, SERUM 4.1 MMOL/L (3.5-5.3); SODIUM, SERUM 138 MMOL/L (135-148)
[2017-03-10 06:30] LABS: CHLORIDE, SERUM 97 MMOL/L (96-112); CREATININE 0.33 MG/DL (0.70-1.30); GFR AFRICAN AMERICAN 152 ML/MIN (>=60); GFR NON AFRICAN AMERICAN 131 ML/MIN (>=60); GLUCOSE, SERUM 107 MG/DL (60-99); POTASSIUM, SERUM 3.8 MMOL/L (3.5-5.3); SODIUM, SERUM 134 MMOL/L (135-148)
[2017-03-10 06:32] LABS: BUN (BLOOD UREA NITROGEN) 12 MG/DL (6-23); CO2 (CARBON DIOXIDE) 28 MMOL/L (24-34)
[2017-03-11] MEDS ORDERED: LEVAQUIN750 MG PO (13:03)
[2017-03-11] MEDS ORDERED: APRES25 PO (13:03)
[2017-03-11] MEDS ORDERED: STERAPDS12 (13:04)
[2017-03-27] MEDS ORDERED: *UNABLE1 (05:58)
== END 2017-03-11 17:27 | DRG 190 ==
LOC: ER 19:23 → 5SO 22:56
PROVIDERS: Hospitalist; Internal Medicine; Nurse Practitioner Acute Care
DX: J44.1 Chronic obstructive pulmonary disease with (acute) exacerbation (principal); J96.21 Acute and chronic respiratory failure with hypoxia; Z99.81 Dependence on supplemental oxygen; Z87.891 Personal history of nicotine dependence; Z79.899 Other long term (current) drug therapy; Z79.82 Long term (current) use of aspirin; I10 Essential (primary) hypertension; Z91.14 Patient's other noncompliance with medication regimen
CPT/HCPCS: 36600; 71010; 71275; 80048; 82805; 83735; 83880; 84132; 84145; 84439; 84443; 84484; 85025; 85379; 85610; 85730; 93005; 93970; 94640; 94660; 94667; 94762; 96374; 99291; A9270-GY; C8929; J0360; J1940; J1956; J2930; Q9957

== ENCOUNTER 2017-03-18 12:28 | Emergency (ER) | payer OTHER ==
[~2017-03-18 12:28] MED LIST changes: +APRES25 PO; +PREDNISONE; +SPIRIVA RESPIMAT INH; +STERAPDS12
[2017-03-18 13:27] LABS: BASOPHILS 0.2 %; BASOPHILS ABSOLUTE 0.02 10/3/uL (0.0-0.16); EOSINOPHILS 0.5 %; EOSINOPHILS ABSOLUTE 0.06 10/3/uL (0.0-0.53); HEMATOCRIT 35.6 % (40.0-51.0); HEMOGLOBIN 12.1 g/dL (13.6-17.8); IMMATURE GRANULOCYTES 4.3 %; LYMPHOCYTES 11.1 %; LYMPHOCYTES ABSOLUTE 1.36 10/3/uL (0.67-4.30); MEAN CORPUSCULAR HEMOGLOB 30.3 pg (26.0-34.0); MEAN CORPUSCULAR VOLUME 89.2 fL (80-100); MEAN PLATELET VOLUME 8.6 fL (9.2-13.0); MONOCYTES 4.5 %; MONOCYTES ABSOLUTE 0.55 10/3/uL (0.21-1.20); NEUTROPHILS 79.4 %; NEUTROPHILS ABSOLUTE 9.78 10/3/uL (2.02-8.40); PLATELET COUNT 186 10/3/uL (150-400); RBC DISTRIBUTION WIDTH 16.5 % (12.0-16.0); RED CELL COUNT 3.99 10/6/uL (4.7-6.1)
[2017-03-18 13:28] LABS: IMMATURE GRANULOCYTES ABSOLUTE 0.53 10/3/uL (0.0-0.11); MANUAL DIFF NO %; WHITE BLOOD CELLS 12.3 10/3/uL (4.5-10.5)
[2017-03-18 13:36] LABS: INTERNATIONAL NORMAL RATI 0.9 UNITS (-); PROTIME (NOT ORD) 11.9 SEC (12.0-14.5)
[2017-03-18 13:43] LABS: ALBUMIN 3.2 G/DL (3.5-5.0); ALKALINE PHOSPHATASE 86 U/L (45-117); BUN (BLOOD UREA NITROGEN) 14 MG/DL (6-23); CALCIUM, SERUM 8.7 MG/DL (8.5-10.4); CHLORIDE, SERUM 99 MMOL/L (96-112); CO2 (CARBON DIOXIDE) 36 MMOL/L (24-34); CREATININE 0.57 MG/DL (0.70-1.30); GFR AFRICAN AMERICAN 121 ML/MIN (>=60); GFR NON AFRICAN AMERICAN 105 ML/MIN (>=60); GLOBULIN 3.1 G/DL (2.5-4.1); GLUCOSE, SERUM 108 MG/DL (60-99); POTASSIUM, SERUM 3.4 MMOL/L (3.5-5.3); SGOT(AST) 14 U/L (5-40); SGPT(ALT) 23 U/L (5-65); SODIUM, SERUM 139 MMOL/L (135-148); TOTAL BILIRUBIN 0.5 MG/DL (0-1.2); TOTAL PROTEIN 6.3 G/DL (6.0-8.5); TROPONIN I <0.02 NG/ML (<0.05)
[2017-03-18 13:47] LABS: BAND NEUTROPHILS 3 %; ER DIFF TAT 0 Hrs 23 Mins; IMMATURE GRANS ABSOLUTE (CALC) 0.12 10/3/uL (0.0-0.11); LYMPHOCYTES 6 %; LYMPHOCYTES ABSOLUTE (CALC) 0.74 10/3/uL (0.67-4.30); METAMYELOCYTES 1 %; MONOCYTES 1 %; MONOCYTES ABSOLUTE (CALC) 0.12 10/3/uL (0.21-1.20); NEUTROPHILS ABSOLUTE (CALC) 11.32 10/3/uL (2.02-8.40); PLATELET ESTIMATE ADQ (ADEQUATE); RBC MORPHOLOGY NORM (NORMAL); SEGMENTED NEUTROPHIL (0) 89 %; TOTAL NUCLEATED CELLS 100
[2017-03-18 15:41] LABS: ALLENS TEST Pos; BE (BASE EXCESS) 7.2 MEQ/L (0 +/- 2.5); CARBOXYHEMOGLOBIN 2.6 % (0-3); HCO3 (ACTUAL BICARBONATE) 32.6 MEQ/L (23-27); HEMOBLOGIN CONTENT 12.6 G/DL (14-18); INSTRUMENT SERIAL # 8087; METHEMOGLOBIN 0.2 % (0-3); O2 CONTENT 16.8 VOL% (18-24); OPERATOR ID 14335; PCO2 (CO2 TENSION) 49 MMHG (35-45); PO2 (O2 TENSION) 88 MMHG (79-93); SAMPLE Arterial; pH 7.44 (7.37-7.43)
[2017-03-27] MEDS ORDERED: *UNABLE1 (05:58)
== END 2017-03-18 16:14 | disposition home or self-care (01) ==
LOC: ER 12:28
PROVIDERS: Physician Assistant
DX: J44.9 Chronic obstructive pulmonary disease, unspecified (principal); I10 Essential (primary) hypertension; Z87.891 Personal history of nicotine dependence; Z79.52 Long term (current) use of systemic steroids; Z79.2 Long term (current) use of antibiotics; Z79.899 Other long term (current) drug therapy
CPT/HCPCS: 36600; 71020; 80053; 82805; 84484; 85025; 85610; 85730; 93005; 94640; 99285

== ENCOUNTER 2017-03-21 22:12 | Emergency (ER) | payer OTHER ==
[2017-03-22 00:04] LABS: BASOPHILS 0.2 %; BASOPHILS ABSOLUTE 0.02 10/3/uL (0.0-0.16); EOSINOPHILS 0.6 %; EOSINOPHILS ABSOLUTE 0.07 10/3/uL (0.0-0.53); HEMATOCRIT 34.6 % (40.0-51.0); HEMOGLOBIN 11.5 g/dL (13.6-17.8); IMMATURE GRANULOCYTES 2.1 %; LYMPHOCYTES 5.7 %; LYMPHOCYTES ABSOLUTE 0.62 10/3/uL (0.67-4.30); MEAN CORPUS HGB CONC 33.2 g/dL (32.0-36.0); MEAN CORPUSCULAR HEMOGLOB 29.9 pg (26.0-34.0); MEAN CORPUSCULAR VOLUME 90.1 fL (80-100); MEAN PLATELET VOLUME 8.6 fL (9.2-13.0); MONOCYTES 4.5 %; MONOCYTES ABSOLUTE 0.49 10/3/uL (0.21-1.20); NEUTROPHILS 86.9 %; NEUTROPHILS ABSOLUTE 9.51 10/3/uL (2.02-8.40); PLATELET COUNT 163 10/3/uL (150-400); RBC DISTRIBUTION WIDTH 16.5 % (12.0-16.0); RED CELL COUNT 3.84 10/6/uL (4.7-6.1); WHITE BLOOD CELLS 10.9 10/3/uL (4.5-10.5)
[2017-03-22 00:06] LABS: IMMATURE GRANULOCYTES ABSOLUTE 0.23 10/3/uL (0.0-0.11); MANUAL DIFF NO %
[2017-03-22 00:42] LABS: ALBUMIN 3.1 G/DL (3.5-5.0); ALKALINE PHOSPHATASE 91 U/L (45-117); BAND NEUTROPHILS 9 %; BASOPHILS 1 %; BASOPHILS ABSOLUTE (CALC) 0.11 10/3/uL (0.0-0.16); BUN (BLOOD UREA NITROGEN) 14 MG/DL (6-23); CALCIUM, SERUM 8.7 MG/DL (8.5-10.4); CHLORIDE, SERUM 97 MMOL/L (96-112); CO2 (CARBON DIOXIDE) 35 MMOL/L (24-34); CREATININE 0.54 MG/DL (0.70-1.30); ER DIFF TAT 0 Hrs 44 Mins; GFR AFRICAN AMERICAN 124 ML/MIN (>=60); GFR NON AFRICAN AMERICAN 107 ML/MIN (>=60); GLOBULIN 3.2 G/DL (2.5-4.1); IMMATURE GRANS ABSOLUTE (CALC) 0.11 10/3/uL (0.0-0.11); LYMPHOCYTES 3 %; LYMPHOCYTES ABSOLUTE (CALC) 0.33 10/3/uL (0.67-4.30); MONOCYTES 1 %; MONOCYTES ABSOLUTE (CALC) 0.11 10/3/uL (0.21-1.20); MYELOCYTES 1 %; NEUTROPHILS ABSOLUTE (CALC) 10.25 10/3/uL (2.02-8.40); PLATELET ESTIMATE ADQ (ADEQUATE); POTASSIUM, SERUM 3.7 MMOL/L (3.5-5.3); RBC MORPHOLOGY NORM (NORMAL); SEGMENTED NEUTROPHIL (0) 85 %; SGOT(AST) 17 U/L (5-40); SGPT(ALT) 20 U/L (5-65); SODIUM, SERUM 138 MMOL/L (135-148); TOTAL BILIRUBIN 0.5 MG/DL (0-1.2); TOTAL NUCLEATED CELLS 100; TOTAL PROTEIN 6.3 G/DL (6.0-8.5)
[2017-03-22 00:43] LABS: GLUCOSE, SERUM 137 MG/DL (60-99)
[2017-03-22 07:34] LABS: BE (BASE EXCESS) 10.4 MEQ/L (0 +/- 2.5); CARBOXYHEMOGLOBIN 2.4 % (0-3); DEVICE NRB; HCO3 (ACTUAL BICARBONATE) 37.1 MEQ/L (23-27); HEMOBLOGIN CONTENT 11.9 G/DL (14-18); INSTRUMENT SERIAL # 8087; METHEMOGLOBIN 0.1 % (0-3); O2 CONTENT 15.6 VOL% (18-24); PCO2 (CO2 TENSION) 60 MMHG (35-45); PO2 (O2 TENSION) 79 MMHG (79-93); SAMPLE Arterial; pH 7.41 (7.37-7.43)
[2017-03-27] MEDS ORDERED: *UNABLE1 (05:58)
== END 2017-03-22 02:08 | disposition home or self-care (01) ==
LOC: ER 22:12
PROVIDERS: Nurse Practitioner Acute Care
DX: J44.1 Chronic obstructive pulmonary disease with (acute) exacerbation (principal); M25.512 Pain in left shoulder; I10 Essential (primary) hypertension; K21.9 Gastro-esophageal reflux disease without esophagitis; Z79.899 Other long term (current) drug therapy; Z79.52 Long term (current) use of systemic steroids
CPT/HCPCS: 36600; 71010; 80053; 82805; 85025; 87070; 87205; 93005; 94640; 96374; 96375; 99285; J2800; J2930

== ENCOUNTER 2017-03-29 23:28 | Inpatient (IN) | payer OTHER ==
--- NOTE | ~2017-03-29 | CN ---
Consultation Report [facility] [address] [place]. [address] NAME: BRENDAN CHINO JR : 49 STATUS : DIS IN PAT#: [id number] AGE: 71 ADM/REG DATE : 03/30/17 MR#: [id number] REPORT SERV DATE: 04/01/17 DICTATED BY: HEAVEN DODGE DATE: 04/01/17 REPORT STATUS : Draft TRANSCRIBED BY: MODL DATE: 04/01/17 PALLIATIVE CARE CONSULTATION DATE OF CONSULTATION: 03/30/2017 Palliative Care has been asked to see Mr. Chino with regard to symptom support, clarification of goals of care, and possible transition to hospice at some point. The patient is admitted 6 times in the last 12 or so months. He was a recent AMA discharge in order to get down to his granddaughter's graduation in [place], which he managed to do and actually flew there and back. He returns now increasingly short of breath. His PCO2 levels have been trending up the last few months. He is getting more short of breath with activities and now literally can only take 5 to 10 steps without stopping. He is living with his neighbors because he is unable to live independently any longer, and they evidently are smokers, but they smoke outside. He claims that he has cut his smoking "way back." He is very concerned about dying short of breath and does not want a respirator or CPR should he . The biggest issue identified is for him to get well enough to be able to actually handle cataract surgery because he tells me that his quality of life is most profoundly affected by his very poor vision. It is impossible for him to read or to even watch television. Everything is blurry, and as such, he is actually more upset about this than his breathing. His past medical history includes COPD, on home O2, 2 to 3 L; chronic hypercarbic respiratory failure; hypertension; gout; and gastroesophageal reflux. His family history and review of systems are reviewed in the chart. SOCIAL HISTORY: He is basically single and relies on his neighbors for support. He has been a smoker up until very recently. He professes to have stopped smoking in the last several weeks. PHYSICAL EXAMINATION: GENERAL: Physical examination shows a barrel chested gentleman who is markedly short of breath. VITAL SIGNS: He is on a 5 L cannula with a respiratory rate of 22 to 24. His heart rate is 88, blood pressure is 138/80, 99% pulse ox initially on 6 L, has now been turned down. HEENT: Head normocephalic. There is a small amount of frontal bossing of his skull which I am not certain as to the significance. His pupils are equal and reactive. His sclerae are anicteric. Conjunctivae are pink. Dentition is poor. He is using accessory muscles to breathe. His trachea appears to be midline. RESPIRATORY: His breath sounds are diffusely distant with scattered rhonchi in the right side and wheezing both on the left and right. There are no rales or other sounds. Abdomen: Somewhat protuberant, nontender without rebound or tenderness. Consultation Report [facility] [id number] [place]. [address] NAME: BRENDAN CHINO JR : 49 STATUS : DIS IN PAT#: [id number] AGE: 71 ADM/REG DATE : 03/30/17 MR#: [id number] REPORT SERV DATE: 04/01/17 DICTATED BY: HEAVEN DODGE DATE: 04/01/17 REPORT STATUS : Draft TRANSCRIBED BY: AINSLEY DATE: 04/01/17 EXTREMITIES: Show just a trace of ankle edema. NEUROLOGICAL: Nonfocal. Generally, we have a well-developed but markedly debilitated elderly gentleman of 71 years who appears to be 5 to 10 years older than that. He has marked dyspnea and unfortunately relatively poor insight. He is appropriate, anxious but is able to make his own decisions although they are certainly sometimes questionable. As part of our ongoing care and support, a POLST form was prepared, and on discharge, copies of it were provided to him. He has again expressed a strong desire not to be resuscitated if something terminal occurs. On the day of discharge, I watched him walk from the bed to the bathroom and back again at which point, he was using pursed lip breathing, his respiratory rate is 28, and he was barely able to speak. I have told him that unfortunately I think his condition is possibly going to worsen in the future, and at some point, he may want to consider hospice, but at this discharge, the patient in fact adamantly declined home health services as well. The patient's condition has clearly been explained to him, and unfortunately, I am fearful that we are going to be seeing him again in the not too distant future. Thank you for asking us to see your patient. We will follow with you. CIRO/AINSLEY Heaven Dodge M.D. / [id number]
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
--- NOTE | ~2017-03-29 | HP ---
History And Physical [facility] [address] [place]. [address] NAME: BRENDAN CHINO JR : 49 STATUS : ADM IN [facility]#: [id number] AGE: 71 ADM/REG DATE : 03/30/17 MR#: [id number] REPORT SERV DATE: 03/30/17 DICTATED BY: NEEMA TALAVERA DATE: 03/30/17 REPORT STATUS : Draft TRANSCRIBED BY: AINSLEY DATE: 03/30/17 DATE OF ADMISSION: 03/29/2017 POINT OF ENTRY: [facility] Emergency Department. PRIMARY SUPERVISOR AIRCRAFT MAINTENANCE: Dr. Madrigal. CHIEF COMPLAINT: Shortness of breath. HISTORY OF PRESENT ILLNESS: Mr. Chino is a 71-year-old gentleman with history of end-stage COPD on 2-3 L nasal cannula, chronic hypoxic and hypercapnic respiratory failure as well as hypertension, who presents here today with reports of worsening shortness of breath, cough, and wheezing. The patient was admitted to the Hospitalist Service on March 27 for acute COPD exacerbation. The patient states that he left later that same day likely against medical advice as he had to attend a graduation of his grandchild in [place] on Tuesday. The patient states he flew down to [place], saw his grandchild's graduation, and flew back to [place] on Tuesday evening. The patient states he was feeling somewhat better when he did sign out against medical advice; however, since leaving our hospital, he started to feel worse with worsening shortness of breath, dyspnea on exertion, wheezing, as well as a sensation of smothering. The patient denies any fevers or chest pain. Initial evaluation in the emergency department for ABG shows a well compensated chronic hypercarbic hypoxic respiratory failure. EKG and labs was unremarkable. Chest x-ray is clear with a possible right lower lobe infiltrate. The patient was subsequently admitted to the Hospitalist Service for further evaluation and management. REVIEW OF SYSTEMS: Comprehensive review of systems otherwise negative unless listed in history present illness. PREVIOUS MEDICAL HISTORY: 1. End-stage COPD on 2-3 L of nasal cannula. 2. Chronic hypercarbic and hypoxic respiratory failure. 3. Hypertension. 4. Gout. 5. Gastroesophageal reflux disease. SURGICAL HISTORY: 1. Left femur open reduction and internal fixation. ALLERGIES: NO KNOWN DRUG ALLERGIES. SOCIAL HISTORY: Former heavy smoker, has quit although still reeks of cigar smoke. States he has extensive secondhand exposure to smoke currently. Denies alcohol, denies illicits. History And Physical [address] [place]. [address] NAME: BRENDAN CHINO JR : 49 STATUS : ADM IN PAT#: [id number] AGE: 71 ADM/REG DATE : 03/30/17 MR#: [id number] REPORT SERV DATE: 03/30/17 DICTATED BY: NEEMA TALAVERA DATE: 03/30/17 REPORT STATUS : Draft TRANSCRIBED BY: AINSLEY DATE: 03/30/17 FAMILY MEDICAL HISTORY: Mother with breast cancer. Father with coronary disease. LABS AND IMAGIN. White count is 7.2, hemoglobin 11.2, hematocrit is 34.1, platelets 221. INR 0.8. 2. Sodium 136, potassium 3.8, chloride 95, carbon dioxide 41, BUN 11, creatinine 0.9, glucose 113, calcium 9.1, magnesium 1.9. 3. BNP 72, troponin less than 0.02. 4. Chest x-ray per review shows COPD type changes with hyperinflation and flattened diaphragms with a possible right lower lobe infiltrate compared to prior chest x-ray. 5. EKG per my review shows normal sinus rhythm with right bundle branch block and left axis deviation, otherwise no acute ischemia or infarction. 6. ABG: PH is 7.38, pCO2 of 57, PO2 is 85, bicarb is 33, saturating 96% on 3 L by nasal cannula. PHYSICAL EXAMINATION: VITAL SIGNS: Temperature is 99.2 degrees Fahrenheit, pulse is 103, respirations 28, saturating 99% on 6 L nasal cannula, blood pressure 137/82. GENERAL: The patient is awake, alert, in no acute distress. Resting comfortably. He is a chronically ill-appearing, elderly male who smells of cigarette smoke. HEENT: Atraumatic and normocephalic. Moist mucous membranes. Pupils equal, round, reactive to light and accommodation. Extraocular eye movements intact. No scleral icterus. NECK: No jugular venous distention. No carotid bruits. CARDIAC: Regular rate and rhythm. No murmurs or gallops. Normal S1, S2. LUNGS: On oxygen, is mildly tachypneic but in no distress. Decreased breath sounds in the base as well as prolonged respiratory phase and some mild inspiratory wheezes in all lung mclaughlin. ABDOMEN: Soft, nontender, nondistended. Good bowel sounds. No rebound, guarding, or rigidity. EXTREMITIES: Warm, perfused. No cyanosis, clubbing, or edema. SKIN: Warm and dry. PSYCH: Affect appropriate. NEURO: Alert and oriented x3. Cranial nerves 2 through 12 grossly intact. Speech is normal. Gait is not assessed. ASSESSMENT AND PLAN: Mr. Chino is a 71-year-old gentleman with end-stage COPD on 2-3 L by nasal cannula, who presents back to the hospital after leaving against medical advice on March 27 with worsening shortness of breath, dyspnea on exertion, and wheezing and was found to have acute chronic obstructive pulmonary disease exacerbation. PROBLEM LIST: 1. Acute chronic obstructive pulmonary disease exacerbation. 2. Chronic hypercarbic and hypoxic respiratory failure. 3. Secondhand smoke exposure. 4. Metabolic alkalosis. 5. Hypertension. 6. Possible right lower lobe pneumonia. History And Physical [address] [address] NAME: BRENDAN CHINO : 49 STATUS : ADM IN [facility]#: [id number] AGE: 71 ADM/REG DATE : 03/30/17 MR#: [id number] REPORT SERV DATE: 03/30/17 DICTATED BY: NEEMA TALAVERA DATE: 03/30/17 REPORT STATUS : Draft TRANSCRIBED BY: AINSLEY DATE: 03/30/17 PLAN: 1. Acute chronic obstructive pulmonary disease exacerbation. We will place the patient on IV steroids, antibiotics, DuoNeb, Brovana, and Pulmicort. The patient apparently appears well compensated on his ABG. 2. Metabolic alkalosis. We will place the patient on some low-dose Diamox for his metabolic alkalosis. 3. Hypertension. We will need to confirm the patient's home medications. In the meantime, hydralazine IV p.r.n. 4. Secondhand smoke exposure. Counseled on need for avoidance of all potential triggers for chronic obstructive pulmonary disease exacerbation including secondhand smoke exposure. 5. Possible right lower lobe pneumonia. The patient does have a very faint infiltrate on the right lower lobe concerning for possible atelectasis versus consolidation. We will follow up formal chest x-ray evaluation. In the meantime, the patient will be on antibiotics. Unfortunately, these were given prior to obtaining blood cultures. 6. Deep vein thrombosis prophylaxis. Lovenox subcu. CODE STATUS: The patient wished to be full code. CHRISTINE/AINSLEY Neema Talavera MD / [id number] CC: Mauricio Sanchez IV, M.D.
[~2017-03-29 23:28] MED LIST changes: +*UNABLE1
[2017-03-30 00:20] LABS: BE (BASE EXCESS) 6.4 MEQ/L (0 +/- 2.5); CARBOXYHEMOGLOBIN 2.2 % (0-3); DEVICE NC; HCO3 (ACTUAL BICARBONATE) 32.9 MEQ/L (23-27); HEMOBLOGIN CONTENT 11.6 G/DL (14-18); INSTRUMENT SERIAL # 8087; METHEMOGLOBIN 0.1 % (0-3); O2 CONTENT 15.3 VOL% (18-24); PCO2 (CO2 TENSION) 57 MMHG (35-45); PO2 (O2 TENSION) 85 MMHG (79-93); SAMPLE Arterial; pH 7.38 (7.37-7.43)
[2017-03-30 00:30] LABS: BASOPHILS 0.8 %; BASOPHILS ABSOLUTE 0.06 10/3/uL (0.0-0.16); EOSINOPHILS 1.9 %; EOSINOPHILS ABSOLUTE 0.14 10/3/uL (0.0-0.53); ER CBC TAT 0 Hrs 05 Mins; HEMATOCRIT 34.1 % (40.0-51.0); HEMOGLOBIN 11.2 g/dL (13.6-17.8); IMMATURE GRANULOCYTES 14.7 %; LYMPHOCYTES 26.5 %; LYMPHOCYTES ABSOLUTE 1.91 10/3/uL (0.67-4.30); MEAN CORPUS HGB CONC 32.8 g/dL (32.0-36.0); MEAN CORPUSCULAR HEMOGLOB 29.9 pg (26.0-34.0); MEAN CORPUSCULAR VOLUME 90.9 fL (80-100); MEAN PLATELET VOLUME 8.6 fL (9.2-13.0); MONOCYTES 8.7 %; MONOCYTES ABSOLUTE 0.63 10/3/uL (0.21-1.20); NEUTROPHILS 47.4 %; NEUTROPHILS ABSOLUTE 3.41 10/3/uL (2.02-8.40); PLATELET COUNT 221 10/3/uL (150-400); RBC DISTRIBUTION WIDTH 16.2 % (12.0-16.0); RED CELL COUNT 3.75 10/6/uL (4.7-6.1); WHITE BLOOD CELLS 7.2 10/3/uL (4.5-10.5)
[2017-03-30 00:33] LABS: IMMATURE GRANULOCYTES ABSOLUTE 1.06 10/3/uL (0.0-0.11); MANUAL DIFF NO %
[2017-03-30 00:37] LABS: INTERNATIONAL NORMAL RATI 0.8 UNITS (-); PROTIME (NOT ORD) 11.2 SEC (12.0-14.5)
[2017-03-30 00:42] LABS: PARTIAL THROMBO TIME 22.7 SEC (22.5-37.2)
[2017-03-30 00:46] LABS: BUN (BLOOD UREA NITROGEN) 11 MG/DL (6-23); CALCIUM, SERUM 9.1 MG/DL (8.5-10.4); CHEST PAIN PROFILE TAT 0 Hrs 21 Mins; CHLORIDE, SERUM 95 MMOL/L (96-112); CO2 (CARBON DIOXIDE) 41 MMOL/L (24-34); GFR AFRICAN AMERICAN 101 ML/MIN (>=60); GFR NON AFRICAN AMERICAN 87 ML/MIN (>=60); GLUCOSE, SERUM 113 MG/DL (60-99); POTASSIUM, SERUM 3.8 MMOL/L (3.5-5.3); SODIUM, SERUM 136 MMOL/L (135-148); TROPONIN I <0.02 NG/ML (<0.05)
[2017-03-30 00:55] LABS: BAND NEUTROPHILS 2 %; EOSINOPHILS 4 %; EOSINOPHILS ABSOLUTE (CALC) 0.29 10/3/uL (0.0-0.53); ER DIFF TAT 0 Hrs 30 Mins; LYMPHOCYTES 23 %; LYMPHOCYTES ABSOLUTE (CALC) 1.66 10/3/uL (0.67-4.30); METAMYELOCYTES 6 %; MONOCYTES 8 %; MONOCYTES ABSOLUTE (CALC) 0.58 10/3/uL (0.21-1.20); MYELOCYTES 1 %; NEUTROPHILS ABSOLUTE (CALC) 4.18 10/3/uL (2.02-8.40); PLATELET ESTIMATE ADQ (ADEQUATE); RBC MORPHOLOGY NORM (NORMAL); SEGMENTED NEUTROPHIL (0) 56 %; TOTAL NUCLEATED CELLS 100
[2017-03-30] MEDS ORDERED: MONODOX100 MG PO (02:48)
[2017-03-30] MEDS ORDERED: HYDROCHLOROT12.5 MG PO (02:49)
[2017-03-30] MEDS ORDERED: DELTADOSE (02:49)
[2017-03-30] MEDS ORDERED: APRES25 PO (02:51)
[2017-03-30] MEDS ORDERED: ALBUTEROL0.083 % INH (02:54)
[2017-03-30] MEDS ORDERED: NORV25 PO (02:55)
[2017-03-30] MEDS ORDERED: PRILO PO (02:56)
[2017-03-30] MEDS ORDERED: PRIN20 PO (02:56)
[2017-03-30] MEDS ORDERED: ATROVENTUD INH (02:56)
[2017-03-30] MEDS ORDERED: SPIRIVA RESPIMAT INH (02:57)
[2017-03-30] MEDS ORDERED: SYMBICORT 160/41 INH INH (02:59)
[2017-03-30] MEDS ORDERED: PROAIR HFA INH (02:59)
[2017-03-30] MEDS ORDERED: *UNABLE1 (03:01)
[2017-03-30 06:14] LABS: HEMATOCRIT 34.8 % (40.0-51.0); HEMOGLOBIN 11.3 g/dL (13.6-17.8); MANUAL DIFF YES %; MEAN CORPUS HGB CONC 32.5 g/dL (32.0-36.0); MEAN CORPUSCULAR HEMOGLOB 29.1 pg (26.0-34.0); MEAN CORPUSCULAR VOLUME 89.7 fL (80-100); MEAN PLATELET VOLUME 8.8 fL (9.2-13.0); PLATELET COUNT 240 10/3/uL (150-400); RED CELL COUNT 3.88 10/6/uL (4.7-6.1); WHITE BLOOD CELLS 8.8 10/3/uL (4.5-10.5)
[2017-03-30 06:28] LABS: BUN (BLOOD UREA NITROGEN) 14 MG/DL (6-23); CALCIUM, SERUM 9.3 MG/DL (8.5-10.4); CHLORIDE, SERUM 93 MMOL/L (96-112); CO2 (CARBON DIOXIDE) 37 MMOL/L (24-34); CREATININE 0.71 MG/DL (0.70-1.30); GFR AFRICAN AMERICAN 111 ML/MIN (>=60); GFR NON AFRICAN AMERICAN 96 ML/MIN (>=60); GLUCOSE, SERUM 167 MG/DL (60-99); POTASSIUM, SERUM 4.1 MMOL/L (3.5-5.3); SODIUM, SERUM 132 MMOL/L (135-148)
[2017-03-30 06:37] LABS: BAND NEUTROPHILS 7 %; IMMATURE GRANS ABSOLUTE (CALC) 0.18 10/3/uL (0.0-0.11); LYMPHOCYTES 9 %; LYMPHOCYTES ABSOLUTE (CALC) 0.79 10/3/uL (0.67-4.30); MONOCYTES 1 %; MONOCYTES ABSOLUTE (CALC) 0.09 10/3/uL (0.21-1.20); MYELOCYTES 2 %; NEUTROPHILS ABSOLUTE (CALC) 7.74 10/3/uL (2.02-8.40); PLATELET ESTIMATE ADQ (ADEQUATE); RBC MORPHOLOGY NORM (NORMAL); SEGMENTED NEUTROPHIL (0) 81 %; TOTAL NUCLEATED CELLS 100
[2017-03-30] MEDS ORDERED: XANAX1 MG PO (10:39)
[2017-03-30] MEDS ORDERED: METHOC750B PO (10:39)
[2017-03-31 04:25] LABS: HEMATOCRIT 32.6 % (40.0-51.0); HEMOGLOBIN 11.1 g/dL (13.6-17.8); MEAN CORPUSCULAR HEMOGLOB 29.6 pg (26.0-34.0); MEAN PLATELET VOLUME 9.1 fL (9.2-13.0); PLATELET COUNT 233 10/3/uL (150-400); RBC DISTRIBUTION WIDTH 15.8 % (12.0-16.0); RED CELL COUNT 3.75 10/6/uL (4.7-6.1); WHITE BLOOD CELLS 8.5 10/3/uL (4.5-10.5)
[2017-03-31 04:30] LABS: MANUAL DIFF YES %; MEAN CORPUSCULAR VOLUME 86.9 fL (80-100)
[2017-03-31 04:32] LABS: BUN (BLOOD UREA NITROGEN) 15 MG/DL (6-23); CALCIUM, SERUM 9.3 MG/DL (8.5-10.4); CHLORIDE, SERUM 97 MMOL/L (96-112); CREATININE 0.47 MG/DL (0.70-1.30); GFR AFRICAN AMERICAN 131 ML/MIN (>=60); GFR NON AFRICAN AMERICAN 113 ML/MIN (>=60); POTASSIUM, SERUM 3.4 MMOL/L (3.5-5.3); SODIUM, SERUM 135 MMOL/L (135-148)
[2017-03-31 04:38] LABS: CO2 (CARBON DIOXIDE) 30 MMOL/L (24-34); GLUCOSE, SERUM 127 MG/DL (60-99)
[2017-03-31 04:57] LABS: BAND NEUTROPHILS 6 %; IMMATURE GRANS ABSOLUTE (CALC) 0.51 10/3/uL (0.0-0.11); LYMPHOCYTES 8 %; LYMPHOCYTES ABSOLUTE (CALC) 0.68 10/3/uL (0.67-4.30); METAMYELOCYTES 5 %; MONOCYTES 4 %; MONOCYTES ABSOLUTE (CALC) 0.34 10/3/uL (0.21-1.20); MYELOCYTES 1 %; NEUTROPHILS ABSOLUTE (CALC) 6.97 10/3/uL (2.02-8.40); PLATELET ESTIMATE ADQ (ADEQUATE); RBC MORPHOLOGY NORM (NORMAL); SEGMENTED NEUTROPHIL (0) 76 %; TOTAL NUCLEATED CELLS 100
[2017-04-01 05:37] LABS: CALCIUM, SERUM 9.1 MG/DL (8.5-10.4); CHLORIDE, SERUM 103 MMOL/L (96-112); CREATININE 0.47 MG/DL (0.70-1.30); GFR AFRICAN AMERICAN 131 ML/MIN (>=60); GFR NON AFRICAN AMERICAN 113 ML/MIN (>=60); POTASSIUM, SERUM 3.6 MMOL/L (3.5-5.3); SODIUM, SERUM 135 MMOL/L (135-148)
[2017-04-01 05:39] LABS: BUN (BLOOD UREA NITROGEN) 23 MG/DL (6-23); CO2 (CARBON DIOXIDE) 23 MMOL/L (24-34); GLUCOSE, SERUM 90 MG/DL (60-99)
[2017-04-01] MEDS ORDERED: DIAM250B PO (11:20)
[2017-04-01] MEDS ORDERED: PULRESP.5 INH (11:21)
[2017-04-01] MEDS ORDERED: DUONEB INH (11:21)
[2017-04-01] MEDS ORDERED: PROVHFA INH (11:22)
[2017-04-01] MEDS ORDERED: P20 PO (11:22)
[2017-04-01] MEDS ORDERED: LEVAQUIN750 MG PO (11:22)
[2017-04-01] MEDS ORDERED: LEXAPRO10 PO (11:23)
[2017-04-01] MEDS ORDERED: BUSPIRONE7.5 MG PO (11:23)
== END 2017-04-01 17:03 | disposition home or self-care (01) | DRG 190 ==
LOC: ER 23:28 → 5NO 03-30 03:53
PROVIDERS: Hospitalist; Specialist
DX: J44.1 Chronic obstructive pulmonary disease with (acute) exacerbation (principal); J18.9 Pneumonia, unspecified organism; J96.12 Chronic respiratory failure with hypercapnia; J96.11 Chronic respiratory failure with hypoxia; E87.3 Alkalosis; J45.901 Unspecified asthma with (acute) exacerbation; I10 Essential (primary) hypertension; Z51.5 Encounter for palliative care; J44.0 Chronic obstructive pulmonary disease with (acute) lower respiratory infection; Z77.22 Contact with and (suspected) exposure to environmental tobacco smoke (acute) (chronic); M10.9 Gout, unspecified; F41.9 Anxiety disorder, unspecified; H26.9 Unspecified cataract; K21.9 Gastro-esophageal reflux disease without esophagitis; Z66 Do not resuscitate; Z99.81 Dependence on supplemental oxygen; Z98.890 Other specified postprocedural states; Z80.3 Family history of malignant neoplasm of breast; Z82.49 Family history of ischemic heart disease and other diseases of the circulatory system; Z87.891 Personal history of nicotine dependence
CPT/HCPCS: 36600; 71010; 71020; 80048; 80053; 82805; 83735; 83880; 84132; 84484; 85025; 85610; 85730; 87040; 87070; 87205; 87449; 93005; 94640; 94644; 96365; 99285; A9270-GY; J1956; J2930

== ENCOUNTER 2017-04-29 14:16 | Inpatient (IN) | payer OTHER ==
--- NOTE | ~2017-04-29 | HP ---
History And Physical [facility] [address] [place]. [address] NAME: BRENDAN CHINO JR : 49 STATUS : ADM IN [facility]#: [id number] AGE: 72 ADM/REG DATE : 04/29/17 MR#: [id number] REPORT SERV DATE: 04/30/17 DICTATED BY: LISSETH HARDING DATE: 04/29/17 REPORT STATUS : Draft TRANSCRIBED BY: MODL DATE: 04/29/17 DATE OF ADMISSION: 04/29/2017 CHIEF COMPLAINT: Respiratory distress. HISTORY OF PRESENT ILLNESS: This is a 72-year-old gentleman, who has a history of end-stage COPD, chronic respiratory failure, multiple prior hospitalization with acute on chronic COPD exacerbation, chronic hypercapnic respiratory failure, hypertension, gout, GERD, and generalized anxiety disorder that has been admitted multiple times in the last couple of months for acute on chronic respiratory failure and COPD exacerbation, presenting today to [facility] with respiratory distress, COPD exacerbation, and acute on chronic respiratory failure. The patient has been extremely short of breath and his disease progressed significantly over the last couple of months. He has feel more short of breath with wheezing, dyspnea on exertion for about two days and as a result, he came to [facility] after found in severe respiratory distress and he has been found again on acute on chronic respiratory failure. After discussing with Lashon Wilson, patient caregiver and power of commercial litigation attorney in the emergency room, Dr. De has been admitted the patient for comfort measure only and possible hospice. PAST MEDICAL HISTORY: Significant for COPD, oxygen dependent; chronic respiratory failure; hypertension; GERD; prior history of pneumonia; and gout. PAST SURGICAL HISTORY: Would include left femoral surgeries, open reduction internal fixation. SOCIAL HISTORY: He is a former heavy smoker, but he said he still uses some cigars, but he has had extensive secondhand exposure to smoke. No alcohol. No IV drugs. ALLERGIES: HE DOES NOT HAVE ANY DRUG ALLERGIES. MEDICATIONS: At home include Diamox, DuoNeb, Norvasc, Pulmicort, BuSpar, Lexapro, Apresoline, hydrochlorothiazide, Prinivil, Prilosec, Daliresp, and Ultracet. REVIEW OF SYSTEMS: A 14-point review of system has been obtained and pertinent positive has been listed into the history of present illness. Otherwise, negative except those underlying above. PHYSICAL EXAMINATION: VITAL SIGNS: The patient currently is afebrile. Blood pressure 122/93, heart rate 100, respiratory rate 19, saturating 100% on BiPAP. GENERAL: He is a chronically ill-appearing gentleman in visible respiratory distress. He is alert and oriented x1. He follows some commands, but appears very agitated. HEENT: Shows pupils equal, round, reactive to light. Extraocular movements intact. Moist mucous membranes. No JVD. No lymphadenopathy. No thyromegaly appreciated. CHEST: Eval shows bilateral air entry. Extremely tachypnea. There are decreased breath sounds throughout, mild wheezes, and scattered rhonchi. History And Physical [address] [place]. [address] NAME: BRENDAN CHINO JR : 49 STATUS : ADM IN [facility]#: [id number] AGE: 72 ADM/REG DATE : 04/29/17 MR#: [id number] REPORT SERV DATE: 04/30/17 DICTATED BY: LISSETH HARDING DATE: 04/29/17 REPORT STATUS : Draft TRANSCRIBED BY: AINSLEY DATE: 04/29/17 CARDIOVASCULAR: Regular rate and rhythm. Tachycardic. S1, S2 positive. No S3, no S4. No murmurs, rubs, or gallops appreciated. ABDOMEN: Soft. Positive bowel sounds. Nontender. No guarding. No rebound. EXTREMITIES: No clubbing, cyanosis, or edema. NEUROLOGIC: He is alert and oriented x1, confused, and moves all his extremities. He does follow some commands. LABORATORY DATA: Labs from today include an ABG of 7.30, 59, and 258. On arrival sodium is 142, potassium 3.2, chloride 101, CO2 of 33, BUN 21, creatinine 1.77, glucose 88. His troponin is less than 0.02. His BNP 91.9. His lactate 1.5. White count 11.2, hemoglobin 12.4, hematocrit 39.6, and platelets 203. His INR is 1. His chest x-ray portable shows that patient has scaring the lung base, but other abnormalities. ASSESSMENT AND PLAN: 1. This is a very pleasant 72-year-old gentleman with end-stage chronic obstructive pulmonary disease with chronic obstructive pulmonary disease exacerbation and acute on chronic respiratory failure. 2. History of hypertension. 3. History of gout. 4. History of gastroesophageal reflux disease. 5. History of anxiety disorder. 6. DNR. The patient is going to be admitted to Hospitalist Service for comfort measures. Upon discussion between ER attending Dr. De and Lashon Wilson, patient caregiver and power of commercial litigation attorney, they have refused BiPAP, they have refused any further workup, and they would like comfort measures only due to the progressiveness of the disease and possible hospice. We are going to admit the patient to Hospitalist Service for comfort measures. Further we are going to provide nebulizer treatment, pain control as well. The patient is going to be admitted to IV fluids. Further workup and recommendation pending above. It is worthwhile to note that the patient is going to be follow up by Hospitalist Service. CF/MODL Lisseth Harding M.D. / [id number] CC: MD Bryan Gupta M.D.
--- NOTE | ~2017-04-29 | DS ---
Discharge Summary [place] [id number] [facility] [place]. [address] NAME: BRENDAN CHINO JR : 49 STATUS : DIS IN PAT#: [id number] AGE: 72 ADM/REG DATE : 04/29/17 MR#: [id number] REPORT SERV DATE: 05/02/17 DICTATED BY: IVANIA PAGAN DATE: 05/01/17 REPORT STATUS : Draft TRANSCRIBED BY: AINSLEY DATE: 05/01/17 ADMISSION DATE: 04/29/2017 DISCHARGE DATE: 05/01/2017 REASON FOR ADMISSION: Acute on chronic COPD exacerbation and acute on chronic hypercapnic and hypoxic respiratory failure. HISTORY OF PRESENT ILLNESS: Please refer Dr. Lisseth Perrin's history and physical dated 04/29/2017 for complete details regarding the patient's admission. In brief, the patient was admitted to the Hospitalist Service for management of the above. HOSPITAL COURSE: The patient was admitted after recent discharge for acute on chronic COPD exacerbation. He has had too numerous to count admissions for his COPD exacerbation. However, at this time, Dr. Perrin admitted the patient and Dr. De, the ER physician, had discussed with the patient and a friend regarding hospice and the movements towards hospice had been initiated. The patient was started on prednisone along with inhalers and nebulizers. His breathing has improved. He did have an ABG in the ER, which showed a pH of 7.3 and a pCO2 of around 57. On the day of discharge, he was feeling much better. He is scheduled to meet with [facility] at around noontime today with anticipation of discharging him home under their care. The patient will be discharged home with [facility] in a stable condition. DISCHARGE DIAGNOSES: Acute on chronic chronic obstructive pulmonary disease exacerbation, improving; acute on chronic hypoxic and hypercapnic respiratory failure, now resolved; severe anxiety; hypertension; anxiety; cataracts; possible ongoing tobacco abuse versus second-hand smoke exposure. PROCEDURES: Include chest x-ray and consultation with [facility]. DISCHARGE MEDICATIONS: Per [facility]. DICTATED BY: MD JAISON Gupta/AINSLEY Ivania Pagan MD / [id number] CC: MD Bryan Gupta M.D.
[~2017-04-29 14:16] MED LIST changes: +BUSPIRONE7.5 MG PO; +DELTADOSE; +DIAM250B PO; +HYDROCHLOROT12.5 MG PO; +LEXAPRO10 PO; +METHOC750B PO; +MONODOX100 MG PO; +P20 PO; +PROAIR HFA INH; +PROVHFA INH; +PULRESP.5 INH; +XANAX1 MG PO
[2017-04-29 15:08] LABS: BASOPHILS 0.3 %; BASOPHILS ABSOLUTE 0.03 10/3/uL (0.0-0.16); EOSINOPHILS 0.6 %; EOSINOPHILS ABSOLUTE 0.07 10/3/uL (0.0-0.53); ER CBC TAT 0 Hrs 15 Mins; HEMATOCRIT 39.6 % (40.0-51.0); HEMOGLOBIN 12.4 g/dL (13.6-17.8); IMMATURE GRANULOCYTES 0.6 %; IMMATURE GRANULOCYTES ABSOLUTE 0.07 10/3/uL (0.0-0.11); LYMPHOCYTES 18.2 %; LYMPHOCYTES ABSOLUTE 2.03 10/3/uL (0.67-4.30); MANUAL DIFF NO %; MEAN CORPUS HGB CONC 31.3 g/dL (32.0-36.0); MEAN CORPUSCULAR HEMOGLOB 28.8 pg (26.0-34.0); MEAN CORPUSCULAR VOLUME 91.9 fL (80-100); MEAN PLATELET VOLUME 9.4 fL (9.2-13.0); MONOCYTES 9.4 %; MONOCYTES ABSOLUTE 1.05 10/3/uL (0.21-1.20); NEUTROPHILS 70.9 %; NEUTROPHILS ABSOLUTE 7.92 10/3/uL (2.02-8.40); PLATELET COUNT 203 10/3/uL (150-400); RBC DISTRIBUTION WIDTH 15.7 % (12.0-16.0); RED CELL COUNT 4.31 10/6/uL (4.7-6.1); WHITE BLOOD CELLS 11.2 10/3/uL (4.5-10.5)
[2017-04-29 15:22] LABS: ALBUMIN 3.5 G/DL (3.5-5.0); ALKALINE PHOSPHATASE 131 U/L (45-117); BUN (BLOOD UREA NITROGEN) 21 MG/DL (6-23); CALCIUM, SERUM 9.3 MG/DL (8.5-10.4); CHLORIDE, SERUM 101 MMOL/L (96-112); CO2 (CARBON DIOXIDE) 33 MMOL/L (24-34); CREATININE 1.77 MG/DL (0.70-1.30); GFR AFRICAN AMERICAN 44 ML/MIN (>=60); GFR NON AFRICAN AMERICAN 38 ML/MIN (>=60); GLOBULIN 3.6 G/DL (2.5-4.1); GLUCOSE, SERUM 88 MG/DL (60-99); LACTATE 1.5 MMOL/L (0.3-2.4); POTASSIUM, SERUM 3.2 MMOL/L (3.5-5.3); SGOT(AST) 16 U/L (5-40); SGPT(ALT) 16 U/L (5-65); SODIUM, SERUM 142 MMOL/L (135-148); TOTAL BILIRUBIN 0.8 MG/DL (0-1.2); TOTAL PROTEIN 7.1 G/DL (6.0-8.5); TROPONIN I <0.02 NG/ML (<0.05)
[2017-04-29] MEDS ORDERED: PRIN20 PO (15:32)
[2017-04-29] MEDS ORDERED: APRES25 PO (15:33)
[2017-04-29] MEDS ORDERED: LEXAPRO10 PO (15:33)
[2017-04-29] MEDS ORDERED: HCTZ12.5 PO (15:34)
[2017-04-29] MEDS ORDERED: BUSPIRONE7.5 MG PO (15:34)
[2017-04-29] MEDS ORDERED: DUONEB INH (15:34)
[2017-04-29] MEDS ORDERED: DIAM250B PO (15:35)
[2017-04-29] MEDS ORDERED: ULTRACET PO (15:35)
[2017-04-29] MEDS ORDERED: NORV25 PO (15:35)
[2017-04-29] MEDS ORDERED: DALIRESP500 MCG PO (15:35)
[2017-04-29] MEDS ORDERED: PRILO PO (15:35)
[2017-04-29] MEDS ORDERED: PROVHFA INH (15:36)
[2017-04-29] MEDS ORDERED: PULRESP.5 INH (15:36)
[2017-04-29 15:53] LABS: PROCALCITONIN 0.34 ng/mL (<0.5)
[2017-04-29 15:57] LABS: PROTIME (NOT ORD) 12.7 SEC (12.0-14.5)
[2017-04-29 16:15] LABS: PARTIAL THROMBO TIME 20.7 SEC (22.5-37.2)
[2017-04-30 08:11] LABS: HEMOGLOBIN 10.3 g/dL (13.6-17.8); MEAN CORPUS HGB CONC 32.7 g/dL (32.0-36.0); MEAN CORPUSCULAR HEMOGLOB 28.8 pg (26.0-34.0); PLATELET COUNT 175 10/3/uL (150-400); RBC DISTRIBUTION WIDTH 15.3 % (12.0-16.0); RED CELL COUNT 3.58 10/6/uL (4.7-6.1); WHITE BLOOD CELLS 7.6 10/3/uL (4.5-10.5)
[2017-04-30 08:13] LABS: HEMATOCRIT 31.5 % (40.0-51.0); MANUAL DIFF YES %
[2017-04-30 08:31] LABS: CALCIUM, SERUM 8.8 MG/DL (8.5-10.4); CHLORIDE, SERUM 103 MMOL/L (96-112); CO2 (CARBON DIOXIDE) 29 MMOL/L (24-34); GFR AFRICAN AMERICAN 78 ML/MIN (>=60); GFR NON AFRICAN AMERICAN 67 ML/MIN (>=60); GLUCOSE, SERUM 101 MG/DL (60-99); POTASSIUM, SERUM 3.4 MMOL/L (3.5-5.3); SODIUM, SERUM 142 MMOL/L (135-148)
[2017-04-30 08:32] LABS: BUN (BLOOD UREA NITROGEN) 29 MG/DL (6-23); CREATININE 1.11 MG/DL (0.70-1.30)
[2017-04-30 09:50] LABS: BAND NEUTROPHILS 3 %; LYMPHOCYTES 10 %; LYMPHOCYTES ABSOLUTE (CALC) 0.76 10/3/uL (0.67-4.30); MONOCYTES 4 %; NEUTROPHILS ABSOLUTE (CALC) 6.54 10/3/uL (2.02-8.40); PLATELET ESTIMATE ADQ (ADEQUATE); SEGMENTED NEUTROPHIL (0) 83 %; TOTAL NUCLEATED CELLS 100
[2017-04-30 09:51] LABS: RBC MORPHOLOGY NORM (NORMAL)
== END 2017-05-01 17:20 | disposition hospice, home (50) | DRG 189 ==
LOC: ER 14:16 → 5SO 19:07
PROVIDERS: Emergency Medicine; Internal Medicine
DX: J96.21 Acute and chronic respiratory failure with hypoxia (principal); J44.1 Chronic obstructive pulmonary disease with (acute) exacerbation; Z99.81 Dependence on supplemental oxygen; Z51.5 Encounter for palliative care; Z66 Do not resuscitate; J96.22 Acute and chronic respiratory failure with hypercapnia; F41.9 Anxiety disorder, unspecified; I10 Essential (primary) hypertension; K21.9 Gastro-esophageal reflux disease without esophagitis; Z87.01 Personal history of pneumonia (recurrent); F17.210 Nicotine dependence, cigarettes, uncomplicated; Z79.899 Other long term (current) drug therapy; Z79.52 Long term (current) use of systemic steroids
CPT/HCPCS: 36600; 71010; 71020; 71100-RT; 80048; 80053; 81001; 82805; 83605; 83735; 83880; 84145; 84484; 85025; 85610; 85730; 87040; 93005; 94640; 94660; 96365; 99284; 99285; A9270-GY; J1956